=== PATIENT | male | born 1980 | race Caucasian/White ===

== ENCOUNTER 2018-09-01 19:10 | Inpatient (IN) ==
--- NOTE | 2018-09-01 19:19 | Emergency Department Note ---
Disposition Clinical Impression: Dyspnea, Urinary tract infection, History of aspiration pneumonia Disposition: Admitted As Inpatient Condition: Good Referrals: Queenie Woodward MD [Primary Care Provider] - General Adult HPI - General Stated complaint: breathing problem Time Seen by Provider: 09/01/18 19:10 Source: EMS Mode of arrival: EMS Limitations: physical limitation Nursing Notes Reviewed: Yes Vital Signs Reviewed: Yes - History of Present Illness HPI Narrative: Patient was sent here if increasing work of breathing. The [facility] care facility thinks that he may have aspirated. There was some lab work earlier and a chest x-ray and started him on some antibiotics but ultimately decided to send him here to the emergency department for evaluation. He reportedly had a negative flu test yesterday. The patient is nonverbal Onset (ago): day(s) (A couple of days) Location: chest Consistency: constant Improves with: nothing Worsens with: nothing - Related Data Home Medications Medication Instructions Recorded Confirmed Gabapentin [Neurontin] 800 mg GTUBE TID 03/27/17 09/01/18 Multivit-Min/FA/Lycopen/Lutein [A 1 tab GTUBE DAILY 03/27/17 09/01/18 Thru Z Select Multivit Tab] Polyethylene Glycol 3350 [MiraLAX] 17 gm GTUBE DAILY 03/27/17 09/01/18 Simethicone 80 mg GTUBE TID 03/27/17 09/01/18 Acetaminophen [Children's 640 mg GTUBE Q4HR PRN 09/14/17 09/01/18 Pain-Fever] GuaiFENesin/Dextromethorphan 5 ml GTUBE Q4HR PRN 09/14/17 09/01/18 [Robitussin/Dm] Hydrocortisone 1% CREAM [Cortaid] 1 appl TP DAILY PRN 09/14/17 09/01/18 Metoclopramide [Reglan] 5 mg GTUBE Q6HR 09/14/17 09/01/18 Omeprazole [PriLOSEC] 20 mg GTUBE DAILY 09/14/17 09/01/18 Amoxicillin/Clavulanate [Augmentin] 875 mg PO BIDWM 09/01/18 09/01/18 GuaiFENesin ER [Mucinex] 400 mg PO TID 09/01/18 09/01/18 Ipratropium/Albuterol Neb [Duoneb] 3 ml IH Q6HR 09/01/18 09/01/18 Oseltamivir [Tamiflu] 75 mg PO BID 09/01/18 09/01/18 levETIRAcetam [Keppra Oral Soln] 1,000 mg GTUBE BID 09/01/18 09/01/18 Allergies Allergy/AdvReac Type Severity Reaction Status Date / Time levofloxacin [From Levaquin] Allergy See Verified 10/04/17 06:40 Comments meperidine [From Demerol] Allergy See Verified 10/04/17 06:40 Comments ondansetron Allergy See Verified 10/04/17 06:40 [From Zofran (as Comments hydrochloride)] Limitations: ROS unobtainable due to patients medical condition Past Medical History - Past Medical History Attestation: Yes The following information was validated with the patient. Source: old records reviewed, nursing notes reviewed Medical history: Reports: GERD, seizures Surgical history: Reports: colostomy, other Psychiatric history: Reports: no psych history - Social History Smoking Status: Never smoker Smokeless Tobacco Status: No Alcohol use: Reports: none Drug use: Reports: none Physical Exam - General Limitations: physical limitation General appearance: in no apparent distress - Head Head exam: atraumatic, normocephalic, normal inspection - Eye Eye exam: Present: normal appearance (nothing acutely different than normal), PERRL, EOMI - ENT ENT exam: normal oropharynx - Neck Neck exam: Present: normal inspection - Chest Chest inspection: Present: normal inspection, symmetric chest wall rise - Respiratory Respiratory exam: Present: wheezes (few scattered wheezes). Absent: respiratory distress - Cardiovascular Cardiovascular exam: Present: regular rate, normal rhythm - Abdominal Exam Abdominal exam: Present: soft, normal bowel sounds - Extremities Exam Extremities exam: Present: other (nothing acutely different than normal) Course Vital Signs Temperature 100.5 F H 09/01/18 19:14 Pulse Rate 140 09/01/18 19:14 Respiratory Rate 20 09/01/18 19:14 Blood Pressure 118/83 09/01/18 19:14 O2 Sat by Pulse Oximetry 95 09/01/18 19:14 Temperature 100.5 F H 09/01/18 19:14 Pulse Rate 140 09/01/18 19:14 Respiratory Rate 20 09/01/18 19:14 Blood Pressure 118/83 09/01/18 19:14 O2 Sat by Pulse Oximetry 95 09/01/18 19:14 Oxygen Delivery Oxygen Delivery Non Rebreather Mask Medical Decision Making - MDM Narrative Medical decision making narrative: Review the patient's medication list. I discussed the case with Dr. Bejarano who is graciously agreed to admit the patient to the hospital - Lab Data Lab results reviewed: Yes I reviewed the patient's lab results. Result diagrams: 09/01/18 19:45 09/01/18 19:45 Lab Results 09/01/18 09/01/18 09/01/18 Range/Units 19:45 19:45 19:45 WBC 16.8 H (4.3-11.1) K/mcL RBC 5.32 (4.19-5.50) M/mcL Hgb 15.3 (12.9-16.9) g/dL Hct 46.0 (37.5-50.1) % MCV 86.5 (83.0-100.0) fL MCH 28.8 (28.0-33.3) pg MCHC 33.3 (31.6-35.5) g/dL RDW 13.9 (11.5-14.5) % Plt Count 200 (140-400) K/mcL MPV 11.7 (9.4-12.4) fL Immature Gran % 0.5 (0-4) % Seg Neutrophils % 92.9 % Lymphocytes % 2.4 % Monocytes % 3.7 % Eosinophils % 0.1 % Basophils % 0.4 % Neutrophils # 15.6 H (1.6-8.9) K/mcL Lymphocytes # 0.4 L (0.6-4.6) K/mcL Monocytes # 0.6 (0.0-1.3) K/mcL Eosinophils # 0.0 (0.0-0.6) K/mcL Basophils # 0.1 (0.0-0.2) K/mcL Sodium 133 L (136-145) mEq/L Potassium 3.5 (3.5-5.1) mEq/L Chloride 101 (98-107) mEq/L Carbon Dioxide 24 (23-29) mEq/L BUN 10 (6-20) mg/dL Creatinine 0.61 L (0.70-1.30) mg/dL Est GFR ( Amer) > 60 (> 60) Est GFR (Non-Af Amer) > 60 (> 60) BUN/Creatinine Ratio 16 (6-26) Glucose 111 H (70-105) mg/dL Calculated Osmolality 276 L (280-300) Lactic Acid 1.4 (0.5-2.2) mmol/L Calcium 9.3 (8.6-10.3) mg/dL Total Bilirubin 0.9 (0.3-1.0) mg/dL AST 26 (13-39) Units/L ALT 37 (7-52) Units/L Alkaline Phosphatase 94 (34-104) Units/L Troponin I < 0.03 (< 0.04) ng/mL Serum Total Protein 7.4 (6.4-8.9) g/dL Albumin 4.1 (3.5-5.7) g/dL Globulin 3.3 (2.4-3.5) g/dL Albumin/Globulin Ratio 1.2 (1.1-2.2) Urine Color (Yellow) Urine Clarity (Clear) Urine pH (5.0-8.0) pH Units Ur Specific [place] (1.010-1.025) Urine Protein (Neg-Trace) mg/dL Urine Glucose (UA) (Normal) mg/dL Urine Ketones (Negative) mg/dL Urine Blood (Negative) Urine Nitrite (Negative) Urine Bilirubin (Negative) Urine Urobilinogen (Normal) mg/dL Ur Leukocyte Esterase (Negative) Urine Microscopic RBC (0-3) per hpf Urine Microscopic WBC (0-3) per hpf Ur Squamous Epith Cells (None-Few) per lpf Ur Transition Epith Cell (None-Few) per hpf Urine Bacteria (None-Few) per hpf Ur Culture Indicated? (NO) 09/01/18 Range/Units 19:55 WBC (4.3-11.1) K/mcL RBC (4.19-5.50) M/mcL Hgb (12.9-16.9) g/dL Hct (37.5-50.1) % MCV (83.0-100.0) fL MCH (28.0-33.3) pg MCHC (31.6-35.5) g/dL RDW (11.5-14.5) % Plt Count (140-400) K/mcL MPV (9.4-12.4) fL Immature Gran % (0-4) % Seg Neutrophils % % Lymphocytes % % Monocytes % % Eosinophils % % Basophils % % Neutrophils # (1.6-8.9) K/mcL Lymphocytes # (0.6-4.6) K/mcL Monocytes # (0.0-1.3) K/mcL Eosinophils # (0.0-0.6) K/mcL Basophils # (0.0-0.2) K/mcL Sodium (136-145) mEq/L Potassium (3.5-5.1) mEq/L Chloride (98-107) mEq/L Carbon Dioxide (23-29) mEq/L BUN (6-20) mg/dL Creatinine (0.70-1.30) mg/dL Est GFR ( Amer) (> 60) Est GFR (Non-Af Amer) (> 60) BUN/Creatinine Ratio (6-26) Glucose (70-105) mg/dL Calculated Osmolality (280-300) Lactic Acid (0.5-2.2) mmol/L Calcium (8.6-10.3) mg/dL Total Bilirubin (0.3-1.0) mg/dL AST (13-39) Units/L ALT (7-52) Units/L Alkaline Phosphatase (34-104) Units/L Troponin I (< 0.04) ng/mL Serum Total Protein (6.4-8.9) g/dL Albumin (3.5-5.7) g/dL Globulin (2.4-3.5) g/dL Albumin/Globulin Ratio (1.1-2.2) Urine Color Yellow (Yellow) Urine Clarity Clear (Clear) Urine pH 7.0 (5.0-8.0) pH Units Ur Specific [place] 1.020 (1.010-1.025) Urine Protein >=300 H (Neg-Trace) mg/dL Urine Glucose (UA) Normal (Normal) mg/dL Urine Ketones Negative (Negative) mg/dL Urine Blood Trace-lysed H (Negative) Urine Nitrite Negative (Negative) Urine Bilirubin Small H (Negative) Urine Urobilinogen Normal (Normal) mg/dL Ur Leukocyte Esterase Negative (Negative) Urine Microscopic RBC 0-3 (0-3) per hpf Urine Microscopic WBC 3-5 H (0-3) per hpf Ur Squamous Epith Cells None Seen (None-Few) per lpf Ur Transition Epith Cell Few (None-Few) per hpf Urine Bacteria Moderate H (None-Few) per hpf Ur Culture Indicated? YES A (NO) - Radiology Data Radiology results reviewed: Yes I reviewed the patient's radiology results. - EKG Data EKG #1 EKG attestation: Yes I reviewed and interpreted this EKG. EKG results narrative: EKG shows sinus tachycardia without acute ST or T-wave changes. Overall poor R- wave progression. The rate is 137 bpm intervals 119 ms frustration 73 ms QTQTC intervals 293 and 4 and 20 ms respectively R axis of 226 degrees
[2018-09-01] MEDS ORDERED: 0.9 % Sodium Chloride 1,000 ML IVC ONE (19:27)
[2018-09-01 20:13] LABS: Basophils # 0.1 K/mcL (0.0-0.2); Basophils % 0.4 %; Eosinophils % 0.1 %; Hemoglobin 15.3 g/dL (12.9-16.9); Immature Granulocytes % 0.5 % (0-4); Lymphocytes # 0.4 K/mcL (0.6-4.6); Lymphocytes % 2.4 %; Mean Corpuscular HGB Conc 33.3 g/dL (31.6-35.5); Mean Corpuscular Hemoglobin 28.8 pg (28.0-33.3); Mean Corpuscular Volume 86.5 fL (83.0-100.0); Mean Platelet Volume 11.7 fL (9.4-12.4); Monocytes # 0.6 K/mcL (0.0-1.3); Monocytes % 3.7 %; Neutrophils # 15.6 K/mcL (1.6-8.9); Platelet Count 200 K/mcL (140-400); Red Blood Count 5.32 M/mcL (4.19-5.50); Red Cell Distribution Width 13.9 % (11.5-14.5); Segmented Neutrophils % 92.9 %
[2018-09-01 20:15] LABS: Bilirubin,Urine Small (Negative); Blood,Urine Trace-lysed (Negative); Clarity,Urine Clear (Clear); Color,Urine Yellow (Yellow); Glucose,Urine (UA) Normal (Normal); Ketones,Urine Negative (Negative); Leukocyte Esterase,Urine Negative (Negative); Nitrite,Urine Negative (Negative); Protein,Urine >=300 mg/dL (Neg-Trace); Urobilinogen,Urine Normal (Normal)
[2018-09-01 20:22] LABS: Bacteria,Urine Moderate per hpf (None-Few); RBC,Urine 0-3 per hpf (0-3); Squamous Epithelial Cell,Urine None Seen per lpf (None-Few); Transitional Epi Cells,Urine Few per hpf (None-Few)
[2018-09-01 20:31] LABS: BUN/Creatinine Ratio 16 (6-26); Blood Urea Nitrogen 10 mg/dL (6-20); Carbon Dioxide 24 mEq/L (23-29); Chloride 101 mEq/L (98-107); Potassium 3.5 mEq/L (3.5-5.1); Sodium 133 mEq/L (136-145); Troponin I < 0.03 ng/mL (< 0.04)
[2018-09-01 20:32] LABS: Alanine Aminotransferase 37 Units/L (7-52); Albumin 4.1 g/dL (3.5-5.7); Albumin/Globulin Ratio 1.2 (1.1-2.2); Alkaline Phosphatase 94 Units/L (34-104); Aspartate Amino Transferase 26 Units/L (13-39); Bilirubin,Total 0.9 mg/dL (0.3-1.0); Calcium 9.3 mg/dL (8.6-10.3); Globulin 3.3 g/dL (2.4-3.5); Glucose 111 mg/dL (70-105); Osmolality,Calculated 276 (280-300); Total Protein 7.4 g/dL (6.4-8.9); eGFR For Non-African Americans > 60 (> 60)
[2018-09-01] MEDS ORDERED: cefTRIAXone 1,000 MG in 0.9 % Sodium Chloride Mini Bag 100 ML IVPB ONE (22:26)
[2018-09-02] MEDS ORDERED: Naloxone 0.4 MG/ML INJ IVP PRN (00:35)
[2018-09-02] MEDS: 0.9 % Sodium Chloride 1,000 ML IVC SCH ×3 (00:54→14:42)
[2018-09-02] MEDS: Metoclopramide 10 MG/10 ML UD.LIQ GTUBE SCH ×5 (01:00→23:59)
[2018-09-02] MEDS: Ipratropium/Albuterol Neb 3 ML IH SCH ×4 (02:38→20:00)
[2018-09-02 06:48] LABS: Basophils # 0.1 K/mcL (0.0-0.2); Basophils % 0.5 %; Hematocrit 42.7 % (37.5-50.1); Hemoglobin 13.9 g/dL (12.9-16.9); Immature Granulocytes % 0.5 % (0-4); Lymphocytes # 0.5 K/mcL (0.6-4.6); Lymphocytes % 5.1 %; Mean Corpuscular HGB Conc 32.6 g/dL (31.6-35.5); Mean Corpuscular Hemoglobin 28.6 pg (28.0-33.3); Mean Corpuscular Volume 87.9 fL (83.0-100.0); Mean Platelet Volume 11.4 fL (9.4-12.4); Monocytes # 0.9 K/mcL (0.0-1.3); Monocytes % 8.6 %; Neutrophils # 8.8 K/mcL (1.6-8.9); Platelet Count 167 K/mcL (140-400); Red Blood Count 4.86 M/mcL (4.19-5.50); Red Cell Distribution Width 13.9 % (11.5-14.5); Segmented Neutrophils % 85.3 %
[2018-09-02 07:05] LABS: BUN/Creatinine Ratio 14 (6-26); Blood Urea Nitrogen 9 mg/dL (6-20); Calcium 8.6 mg/dL (8.6-10.3); Carbon Dioxide 22 mEq/L (23-29); Chloride 106 mEq/L (98-107); Glucose 117 mg/dL (70-105); Osmolality,Calculated 282 (280-300); Potassium 3.7 mEq/L (3.5-5.1); Sodium 136 mEq/L (136-145); eGFR For Non-African Americans > 60 (> 60)
--- NOTE | 2018-09-02 10:33 | Internal Med History&Physical ---
Addendum entered and electronically signed by Alfonso Bejarano MD 09/03/18 11:28: It should also have been noted that the patient has a left lower quadrant colostomy which is functioning and intact without gross herniation. Addendum entered and electronically signed by Alfonso Bejarano MD 09/02/18 12:54: I spoke with patient's mother, who is also his guardian, Xochitl Kwong. I described the patient's clinical situation, has worsening oxygenation which is improved with CPAP, test results, etc. I told her that I did not feel he was worsening, currently but that he was febrile and we did note a source of this infection. She feels that it is important that we know that he had a couple of gallstones on admission, earlier in the year. I informed her that I do not think that he seems to have cholecystitis but we would take this information into consideration. Interestingly, his white blood count has normalized. Per nursing, he was placed on Tamiflu in the emergency room but he was negative for influenza at his facility. She confirmed that he is to be a DO NOT RESUSCITATE, do not arrest, DO NOT INTUBATE. She prefers to be contacted by her cell phone, or at her 's cell phone . Addendum entered and electronically signed by Alfonso Bejarano MD 09/02/18 11:58: I have personally performed a face to face evaluation on this patient. I have reviewed and agree with the care plan. History and Exam by me shows: Patient is a 38-year-old man with cerebral palsy. He is apparently minimally responsive at his baseline and is nonverbal. He is treated with medications by G-tube and tube feedings at night. He presented to the emergency room with fever, tachypnea, hypoxia, and respiratory exam was felt to represent aspiration. He is also known to have recurrent UTIs. White 1 count was elevated but this normalized overnight. Patient is minimally responsive. He has chronic immobility with deformity of hands and feet, chronic edema. Review of systems, past history is from computer because of patient's inability to communicate. Examination: (Except as mentioned above): General: Patient appears uncomfortable. He is given a with increased expiratory phase. He obviously does not like his rebreather mask. Head: Atraumatic and normocephalic. Eyes: Extraocular muscles are intact, pupils equal round and reactive to light and I am unable to determine accommodation. Sclerae anicteric. Ears: External ears are normal to inspection and hearing is impossible to assess. Nose: Patent without lesion noted. Mouth: No intraoral lesions seen. Dentition is unremarkable. It is present. Oral mucosa is moist Neck: Supple with trachea midline. There is no thyromegaly or adenopathy and carotids are 2+ without bruit heard. Respiratory: No use of accessory muscles. Lungs have upper airway sounds and no rales with increased expiratory phase, mildly tachypneic as above. Normal airflow. Cardiovascular: Regular rate and rhythm without murmur appreciated. Abdomen: Bowel sounds are normal. No hepatosplenomegaly masses or tenderness. Obese and therefore difficult to palpate deeply. Extremities: No cyanosis clubbing or pitting edema. He has atrophy and edema of immobility, as noted above. Neurological: A and O 3. Cranial nerves II through XII are intact, as can be assessed. No focal deficits and no abnormal movements or postures. Skin: Warm and non-diaphoretic with no lesions noted. Breasts, pelvic and rectal: Not examined. He apparently has a seizure disorder as indicated by history and his medications. Her paperwork accompanying the patient and he is a DNRCCA, DO NOT INTUBATE. We will empirically treat him with antibiotics, await cultures, because of his edema and prolonged inspiratory phase we checked a BNP but this was negative for signs of CHF. Because his oxygenation was worsening, his chest x-ray was repeated and failed to show any new infiltrates or CHF. I will attempt to reach patient's mother who is apparently next of kin and determine whether history or care wishes from her standpoint. Original Note: Date of Encounter: 09/02/18 Time of Encounter: 10:31 Assessment and Plan (1) Dyspnea Current visit: Yes Status: Acute Patient was admitted to the emergency department with slight dyspnea and to rule out possible aspiration. Patient continues to have slight work of breath noted. Patient remains on nonrebreather to maintain oxygen greater than 90%. We will place patient on CPAP to maintain airway clearance and will evaluate patient's progress while on CPAP. We will titrate patient's oxygen to maintain saturation greater than 88%. Initial chest x-ray shows no infectious process but does show poor ventilation. We will continue on current Rocephin. Patient continues on Augmentin for possible UTI. Admission WBC was at 16.8. We will continue to monitor and continue on current bronchodilators. Qualifiers: Dyspnea type: unspecified Qualified Code(s): R06.00 - Dyspnea, unspecified (2) Cerebral palsy Current visit: Yes Status: Chronic No acute issues. Patient remains comfortable and does not follow any commands. Patient remains total care. We will continue with comfort care measures. Qualifiers: Cerebral palsy type: unspecified type Qualified Code(s): G80.9 - Cerebral palsy, unspecified (3) Seizure disorder Current visit: Yes Status: Chronic No acute issues. No neurological acute deficits noted on exam. No seizure activity noted. We will continue on current AEDs. Internal Medicine - H&P: HPI Chief complaint: dyspnea Admitted From: Home Plans for Post Hospital Care: Home History of present illness: Mr. Villafana is a 38 year old male, who presented to the emergency department from an extended care facility with increased work of breath and possible aspiration. 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 Patient remains nonverbal. Per medical records from nursing facility patient has recently been treated for pneumonia and UTI with oral antibiotics. Nursing facility also documented that A nasal swab was obtained which shows negative for flu virus. Patient was treated with nebulizer treatments and started on IV antibiotics. Patient currently has had difficulty maintaining saturation greater than 90% and at time of exam he was on a nonrebreather mask. Patient noted to have slight increased work of breath, which appears to be mostly upper airway. His lungs continue to show some congestion to the upper bronchials and diminished bases. Chest x-ray shows no infectious process. Admission labs showed no acute issues except for WBC of 16.8. Repeat labs show WBC at 10.3. Past Med Surg Social Fam HX - Past Medical History Medical history: GERD, seizures Additional medical history: quadropalegia, cerebral palsey Psychiatric history: no psych history - Past Surgical History Surgical History: colostomy, other Additional surgical history: peg tube - Social History Smoking Status: Never smoker Smokeless Tobacco Status: No Alcohol use: none Drug use: none - Family History Mother History Unknown: Yes Family Member Ethnicity: Non- Living Status: Still Living Internal Medicine - H&P: Meds Gabapentin [Neurontin] 800 mg GTUBE TID 03/27/17 [History] Multivit-Min/FA/Lycopen/Lutein [A Thru Z Select Multivit Tab] 1 tab GTUBE DAILY 03/27/17 [History] Polyethylene Glycol 3350 [MiraLAX] 17 gm GTUBE DAILY 03/27/17 [History] Simethicone 80 mg GTUBE TID 03/27/17 [History] Acetaminophen [Children's Pain-Fever] 640 mg GTUBE Q4HR PRN 09/14/17 [History] GuaiFENesin/Dextromethorphan [Robitussin/Dm] 5 ml GTUBE Q4HR PRN 09/14/17 [History] Hydrocortisone 1% CREAM [Cortaid] 1 appl TP DAILY PRN 09/14/17 [History] Metoclopramide [Reglan] 5 mg GTUBE Q6HR 09/14/17 [History] Omeprazole [PriLOSEC] 20 mg GTUBE DAILY 09/14/17 [History] Amoxicillin/Clavulanate [Augmentin] 875 mg PO BIDWM 09/01/18 [History] GuaiFENesin ER [Mucinex] 400 mg PO TID 09/01/18 [History] Ipratropium/Albuterol Neb [Duoneb] 3 ml IH Q6HR 09/01/18 [History] Oseltamivir [Tamiflu] 75 mg PO BID 09/01/18 [History] levETIRAcetam [Keppra Oral Soln] 1,000 mg GTUBE BID 09/01/18 [History] Allergy/AdvReac Type Severity Reaction Status Date / Time levofloxacin [From Levaquin] Allergy See Verified 10/04/17 06:40 Comments meperidine [From Demerol] Allergy See Verified 10/04/17 06:40 Comments ondansetron Allergy See Verified 10/04/17 06:40 [From Zofran (as Comments hydrochloride)] ROS unobtainable: due to mental status All Systems PM: A 10-system review of systems was performed and is negative for pertinent findings except as documented above in the HPI. - Constitutional Constitutional: as per HPI - EENT Eyes: as per HPI Ears: as per HPI Nose, mouth and throat: as per HPI - Breasts Breasts: as per HPI - Cardiovascular Cardiovascular ROS IM: as per HPI - Respiratory Respiratory: as per HPI - Gastrointestinal Gastrointestinal: as per HPI - Genitourinary Genitourinary ROS male: as per HPI - Musculoskeletal Musculoskeletal ROS IM: as per HPI - Integumentary Integumentary IM: as per HPI - Neurological Neurological ROS: as per HPI - Psychiatric Psychiatric: as per HPI - Endocrine Endocrine IM: as per HPI - Constitutional Vitals: Temp Pulse Resp BP Pulse Ox 100.5 F H 117 20 101/66 93 09/02/18 07:33 09/02/18 07:33 09/02/18 07:33 09/02/18 07:33 09/02/18 07:33 Exam: Patient is nonverbal and does not interact with tracking of eyes or as response to verbal stimulation. History of MRDD - Head Head exam: Present: atraumatic, normocephalic - Eye Eye exam: Present: PERRL, conjuntiva pink, sclera anicteric Pupils: Present: PERRL - Neck Neck exam general surgery: Present: supple, trachea midline. Absent: lymphadenopathy - Respiratory Respiratory exam: Present: decreased breath sounds, CTAB, rhonchi. Absent: accessory muscle use, rales, wheezes Additional comments: Lungs are diminished throughout basis. Upper airways have rhonchi but can be heard which tends to be higher in his airway with questionable difficulty and airway clearance. No productive cough noted. Respiratory effort shows slight increased work of breath but remains at 22/m - Cardiovascular Cardiovascular exam: Present: RRR, +S1, +S2. Absent: diastolic murmur, gallop, rubs, systolic murmur - GI/Abdominal GI/Abdominal exam: Present: normal bowel sounds, soft, no peritoneal signs. Absent: distended, tenderness - Extremities Exam Extremities exam: Present: pedal edema, warm, radial pulses palpable and symmetrical. Absent: calf tenderness, cyanotic Additional comments: Slight +1 edema to lower legs - Neurological Exam Neurological exam: Present: no focal deficits. Absent: pronater drift, facial droop, speech deficit Additional comments: Exam limited due to patient's on interaction and being nonverbal secondary to his MRDD. Patient does not sluggish withdrawal to all extremities. No tracking with eyes. Does not follow any commands. No focal neurological deficits noted - Skin Skin exam: Present: dry, intact Internal Med - H&P Results - Labs CBC & Chem 7: 09/02/18 06:43 09/02/18 06:43 Labs: Short CBC 09/01/18 09/02/18 Range/Units 19:45 06:43 WBC 16.8 H 10.3 (4.3-11.1) K/mcL Hgb 15.3 13.9 (12.9-16.9) g/dL Hct 46.0 42.7 (37.5-50.1) % Plt Count 200 167 (140-400) K/mcL Neutrophils # 15.6 H 8.8 (1.6-8.9) K/mcL BMP 09/01/18 09/02/18 19:45 06:43 Sodium 133 L 136 Potassium 3.5 3.7 Chloride 101 106 Carbon Dioxide 24 22 L BUN 10 9 Creatinine 0.61 L 0.63 L Glucose 111 H 117 H Calcium 9.3 8.6 Cardiac Enzymes 09/01/18 Range/Units 19:45 Troponin I < 0.03 (< 0.04) ng/mL Liver Function 09/01/18 Range/Units 19:45 Total Bilirubin 0.9 (0.3-1.0) mg/dL AST 26 (13-39) Units/L ALT 37 (7-52) Units/L Alkaline Phosphatase 94 (34-104) Units/L Albumin 4.1 (3.5-5.7) g/dL Urine 09/01/18 Range/Units 19:55 Urine Color Yellow (Yellow) Urine Clarity Clear (Clear) Urine pH 7.0 (5.0-8.0) pH Units Ur Specific [place] 1.020 (1.010-1.025) Urine Protein >=300 H (Neg-Trace) mg/dL Urine Glucose (UA) Normal (Normal) mg/dL - Impressions ITS Impressions Chest X-Ray 09/01/18 19:14 IMPRESSION: Low lung volumes without acute cardiopulmonary disease. D/ / Carlos Alberto Flowers / Carlos Alberto Flowers Interpreting Provider: Carlos Alberto Flowers Chest X-Ray 09/02/18 09:04 IMPRESSION: No acute findings. D/ / Carlos Villalta MD / Carlos Villalta MD Interpreting Provider: Carlos Villalta MD
[2018-09-02] MEDS: GuaiFENesin Liq 200 MG/10 ML UDC GTUBE SCH ×3 (10:48→21:53)
[2018-09-02] MEDS: levETIRAcetam 500 MG/5 ML UDC GTUBE SCH ×2 (10:49→21:52)
[2018-09-02] MEDS: Multivitamin Liquid 15 ML UDC GTUBE SCH (10:51)
[2018-09-02] MEDS: Simethicone 40 MG/0.6 ML MLS GTUBE SCH ×3 (10:52→21:53)
[2018-09-02] MEDS: Gabapentin 400 MG CAPSULE GTUBE SCH ×3 (10:52→21:52)
--- NOTE | 2018-09-02 16:55 | Electrocardiograph Report ---
[place] [id number] Test Date: 2018-09-01 Pat Name: Aston Villafana Department: EDG2 Room: 118 Gender: M [employer]ing [employer] Tender: : 1980 Requested By: Travis Call Order Number: [id number] Reading MD: Cristina Guillen Measurements Intervals [place] Rate: 137 P: 28 DE: 119 QRS: 226 QRSD: 73 T: 23 QT: 283 QTc: 428 Interpretive Statements Sinus tachycardia Abnormal R-wave progression, late transition Inferior infarct, old Electronically Signed On 09-02-2018 16:53:47 EDT by Cristina Guillen
[2018-09-02] MEDS: Amoxicillin/Clavulanate 200 MG/5 ML MLS PO SCH (17:59)
[2018-09-02] MEDS: *HR* Heparin 5,000 UNIT/ML VIAL SQ SCH (18:01)
[2018-09-02] MEDS: cefTRIAXone 1,000 MG in 0.9 % Sodium Chloride Mini Bag 100 ML IVPB SCH (21:50)
[2018-09-02] MEDS ORDERED: cefTRIAXone 1,000 MG in 0.9 % Sodium Chloride Mini Bag 100 ML IVPB SCH (22:00)
[2018-09-03] MEDS: 0.9 % Sodium Chloride 1,000 ML IVC SCH (03:33)
[2018-09-03] MEDS: Ipratropium/Albuterol Neb 3 ML IH SCH ×4 (03:33→21:36)
[2018-09-03] MEDS: Metoclopramide 10 MG/10 ML UD.LIQ GTUBE SCH ×4 (05:45→23:51)
[2018-09-03] MEDS: *HR* Heparin 5,000 UNIT/ML VIAL SQ SCH ×2 (05:46→17:23)
[2018-09-03] MEDS: Amoxicillin/Clavulanate 200 MG/5 ML MLS PO SCH ×2 (08:00→16:55)
[2018-09-03] MEDS: Gabapentin 400 MG CAPSULE GTUBE SCH ×3 (08:37→20:13)
[2018-09-03] MEDS: Multivitamin Liquid 15 ML UDC GTUBE SCH (08:37)
[2018-09-03] MEDS: levETIRAcetam 500 MG/5 ML UDC GTUBE SCH ×2 (08:37→20:12)
[2018-09-03] MEDS: GuaiFENesin Liq 200 MG/10 ML UDC GTUBE SCH ×3 (09:57→21:29)
[2018-09-03] MEDS: Simethicone 40 MG/0.6 ML MLS GTUBE SCH ×3 (09:57→21:30)
--- NOTE | 2018-09-03 10:22 | Internal Med Progress Note ---
Addendum entered and electronically signed by Alfonso Bejarano MD 09/03/18 11:29: I have personally performed a face to face evaluation on this patient. I have r eviewed and agree with the care plan. History and Exam by me shows: Patient looks more stable than yesterday. His respiratory rate has decreased. He is still having prolonged expiratory phase but this may be baseline. His tolerance of CPAP mask has been good. We will try to wean this today. His oxygenation is better. He still coughs frequently when medications or tube feedings are infused. He illustrates decorticated posturing frequently. I assuming this is baseline. Discussed care with other providers and/or nursing. Patient has no complaint of chest discomfort, dyspnea, orthopnea, palpitations, nausea or vomiting, constipation or diarrhea, other changes in bowel habits, di fficulty with urination, rash or itching, or other new complaints, except as mentioned above. Review of systems is otherwise negative. Examination: (Except as mentioned above): General: In no apparent distress. Alert and oriented 3. Nondiaphoretic. Head: Atraumatic and normocephalic. Respiratory: No use of accessory muscles. Lungs are clear throughout. Normal airflow. Cardiovascular: Regular rate and rhythm without murmur appreciated. Abdomen: Bowel sounds are normal. No hepatosplenomegaly mass or tenderness appreciated. Obese and therefore difficult to palpate deeply. There is no right upper quadrant tenderness. Left lower quadrant colostomy is intact with adequate function. Extremities: No cyanosis clubbing or edema. Skin: Warm and non-diaphoretic with no new lesions noted. Nursing notes that her urinary output was diminished last night. For this reason, his IV was increased. We will follow fluids, urine output, etc. Original Note: Date of Encounter: 09/03/18 Time of Encounter: 10:19 - Assessment and plan (1) Dyspnea Current Visit: Yes Status: Acute Assessment and plan: Patient's oxygenation has improved after being placed on CPAP overnight. Patient currently shows a less work of breath while on CPAP and been able to maintain airway clearance. Lungs remain clear to up her moreno with diminished bases. He does at times shows some condition to the back of his throat. Respiratory she has not NT suction. Patient has remained afebrile. We will evaluate patient for possible trial off CPAP today. Will continue with supportive care. Qualifiers: Dyspnea type: unspecified Qualified Code(s): R06.00 - Dyspnea, unspecified (2) Cerebral palsy Current Visit: Yes Status: Chronic Assessment and plan: No acute neurological changes noted. Patient continues to require total care. Patient shows minimal spontaneous movement. Nonverbal. Qualifiers: Cerebral palsy type: unspecified type Qualified Code(s): G80.9 - Cerebral palsy, unspecified (3) Seizure disorder Current Visit: Yes Status: Chronic Assessment and plan: No acute issues. No seizure activity noted. Neurological exam remains unchanged. We will continue with current plan of care - Time Spent With Patient less than 15 minutes - Subjective Interval history: Patient remains nonverbal as his baseline. Patient does appear more relaxed while on CPAP. Nurse reports no issues tonight and the patient has remained a febrile and has not required any NT suctioning. - Constitutional Vitals: Temp Pulse Resp BP Pulse Ox 98.4 F 72 19 108/76 98 09/03/18 08:15 09/03/18 08:15 09/03/18 08:15 09/03/18 08:15 09/03/18 09:00 Exam: Patient currently is nonverbal and does not respond any verbal stimuli. Does not follow any commands. History of CP - Head Head exam: Present: atraumatic, normocephalic - Eye Eye exam: Present: PERRL, conjuntiva pink, sclera anicteric Pupils: Present: PERRL - Neck Neck exam general surgery: Present: supple, trachea midline. Absent: lymphadenopathy - Respiratory Respiratory exam: Present: decreased breath sounds, CTAB. Absent: accessory muscle use, rales, rhonchi, wheezes Additional comments: Patient remains on CPAP with a pressure of 10 and 35% oxygen was bled into the system. Saturations have remained greater than 90%. Lungs are clear throughout upper moreno and diminished bases. Patient continues to show some congestion in the back of his throat or upper bronchials - Cardiovascular Cardiovascular exam: Present: RRR, +S1, +S2. Absent: diastolic murmur, gallop, rubs, systolic murmur - GI/Abdominal GI/Abdominal exam: Present: normal bowel sounds, soft, no peritoneal signs. Absent: distended, tenderness Additional comments: Patient has a gastrostomy pain in place with tube feeding infusing. Noted slight redness around insertion site. - Extremities Exam Extremities exam: Present: pedal edema, warm, radial pulses palpable and symmetrical. Absent: calf tenderness, cyanotic Additional comments: Slight nonpitting edema noted to sacral area and pedal. Slight contractures noted to bilateral lower extremities - Neurological Exam Neurological exam: Present: speech deficit. Absent: pronater drift, facial droop Additional comments: Neurological exam limited due to patient's nonverbal and unable to participate. Patient currently does not respond to any verbal stimuli or follow any commands. Sluggish withdrawal to pain on extremities. Patient with history of CP. - Skin Skin exam: Present: dry, intact Internal Medicine: Result - Labs CBC & Chem 7: 09/02/18 06:43 09/02/18 06:43 Consult Discharge Plan - Plan Referrals: Queenie Woodward MD [Primary Care Provider] -
[2018-09-03] MEDS: cefTRIAXone 1,000 MG in 0.9 % Sodium Chloride Mini Bag 100 ML IVPB SCH (21:31)
[2018-09-04] MEDS: Ipratropium/Albuterol Neb 3 ML IH SCH ×4 (04:20→22:02)
[2018-09-04] MEDS: Metoclopramide 10 MG/10 ML UD.LIQ GTUBE SCH ×3 (05:51→16:22)
[2018-09-04] MEDS: *HR* Heparin 5,000 UNIT/ML VIAL SQ SCH ×2 (05:53→16:21)
[2018-09-04] MEDS: Gabapentin 400 MG CAPSULE GTUBE SCH ×3 (08:16→21:28)
[2018-09-04] MEDS: Multivitamin Liquid 15 ML UDC GTUBE SCH (08:17)
[2018-09-04] MEDS: levETIRAcetam 500 MG/5 ML UDC GTUBE SCH ×2 (08:17→21:28)
[2018-09-04] MEDS: Simethicone 40 MG/0.6 ML MLS GTUBE SCH ×4 (08:18→21:30)
[2018-09-04] MEDS: GuaiFENesin Liq 200 MG/10 ML UDC GTUBE SCH ×3 (08:19→21:28)
[2018-09-04] MEDS: Amoxicillin/Clavulanate 400 MG/5 ML UDC GTUBE SCH ×2 (08:22→16:25)
[2018-09-04 10:52] LABS: Basophils % 0.3 %; Hematocrit 38.9 % (37.5-50.1); Hemoglobin 12.7 g/dL (12.9-16.9); Immature Granulocytes % 0.3 % (0-4); Lymphocytes # 1.4 K/mcL (0.6-4.6); Lymphocytes % 22.6 %; Mean Corpuscular HGB Conc 32.6 g/dL (31.6-35.5); Mean Corpuscular Hemoglobin 28.7 pg (28.0-33.3); Mean Corpuscular Volume 87.8 fL (83.0-100.0); Mean Platelet Volume 11.4 fL (9.4-12.4); Monocytes # 0.5 K/mcL (0.0-1.3); Monocytes % 7.4 %; Neutrophils # 4.2 K/mcL (1.6-8.9); Platelet Count 155 K/mcL (140-400); Red Blood Count 4.43 M/mcL (4.19-5.50); Red Cell Distribution Width 14.1 % (11.5-14.5); Segmented Neutrophils % 69.4 %
--- NOTE | 2018-09-04 11:02 | Internal Med Progress Note ---
Addendum entered and electronically signed by Alfonso Bejarano MD 09/04/18 13:24: I have personally performed a face to face evaluation on this patient. I have r eviewed and agree with the care plan. History and Exam by me shows: Patient is more verbal when manipulated. He is not at all intelligible. When allowed to relax, he is reacting normally with no increase in expiratory phase. He may be returning to baseline. He still has low-grade temperature. Laboratory studies are unremarkable. We will follow for another day and consider swing bed or return to [facility]. Discussed care with other providers and/or nursing. Nursing question seizure activity. However, I think this is only posturing. Examination: (Except as mentioned above): General: In no apparent distress. Nonresponsive as before, more audible as above. Rarely postures. Head: Atraumatic and normocephalic. Respiratory: No use of accessory muscles. Lungs are clear throughout. Normal airflow. Cardiovascular: Regular rate and rhythm without murmur appreciated. Abdomen: Bowel sounds are normal. No hepatosplenomegaly mass or tenderness appreciated. Obese and therefore difficult to palpate deeply. Extremities: No cyanosis clubbing or change in edema. Skin: Warm and non-diaphoretic with no new lesions noted. We have not localized any signs of infection so assuming this is viral. However, we know that he was swabbed for influenza and this was negative. We will continue to follow for another day, as above. Original Note: Date of Encounter: 09/04/18 Time of Encounter: 11:00 - Assessment and plan (1) Dyspnea Current Visit: Yes Status: Acute Assessment and plan: Patient has been off CPAP since this afternoon and has maintained his oxygen saturation greater than 90% while on 35% oxygen mask. Respiratory effort appears relaxed at present although patient still has a slight snoring type respirations. Lungs are clear throughout upper moreno but noted slight expiratory wheeze which may also be secondary to his airway clearance. Nurse reports occasional productive cough and no sputum received Qualifiers: Dyspnea type: unspecified Qualified Code(s): R06.00 - Dyspnea, unspecified (2) Cerebral palsy Current Visit: Yes Status: Chronic Assessment and plan: Nurse reports patient with 2-3 seizures through the night which they describe as a momentarily decorticate type posturing. Patient noted to have decorticate type posturing with noxious stimuli to bilateral feet. Labs were sent to evaluate. Patient currently been no obvious seizure activity noted. Patient actually is more awake today than he has been since his admission. No acute neurological deficits noted on exam. Qualifiers: Cerebral palsy type: unspecified type Qualified Code(s): G80.9 - Cerebral palsy, unspecified (3) Seizure disorder Current Visit: Yes Status: Chronic Assessment and plan: Patient with reported seizure type activity on 3 different occasions by nursing overnight. Her symptoms describes seizures as a decorticate type posturing momentarily. Patient noted to have decorticate type posturing in response to noxious stimuli to bilateral feet. Patient is actually more awake today that he has been. Patient currently on Keppra. Will check his current labs and Keppra levels. - Time Spent With Patient less than 15 minutes - Subjective Interval history: Patient remains nonverbal as his baseline. Nursing reports patient has had what appears to be seizure-like activity on 2-3 occasions through the night and which patient has a decorticate type posturing. Nursing also reports patient has been off CPAP since yesterday afternoon and remains on a 35% oxygen mask and has maintained saturations greater than 90%. Patient continues to have a slight snoring type airway clearance but does appear relaxed. Patient was stimulated with noxious stimuli to the feet and was noted to have a decorticate type posturing in response. Patient is more awake today but remains nonverbal - Constitutional Vitals: Temp Pulse Resp BP Pulse Ox 98.2 F 109 16 114/70 97 09/04/18 08:00 09/04/18 08:00 09/04/18 08:00 09/04/18 08:00 09/04/18 08:00 Exam: Patient is a CP patient patient has a history of nonverbal, which makes his exam limited - Head Head exam: Present: atraumatic, normocephalic - Eye Eye exam: Present: PERRL, conjuntiva pink, sclera anicteric Pupils: Present: PERRL - Neck Neck exam general surgery: Present: supple, trachea midline. Absent: lymphadenopathy - Respiratory Respiratory exam: Present: CTAB. Absent: accessory muscle use, rales, rhonchi, wheezes Additional comments: Lungs are clear throughout upper moreno with diminished basilar moreno. Patient continues to have a slight expiratory wheeze was referred in his upper airways and may be secondary to airway clearance. Patient has had an occasional productive cough but no sputum has been received. Oxygen saturation has remained greater than 90% on 35% oxygen per mask - Cardiovascular Cardiovascular exam: Present: RRR, +S1, +S2. Absent: diastolic murmur, gallop, rubs, systolic murmur - GI/Abdominal GI/Abdominal exam: Present: normal bowel sounds, soft, no peritoneal signs. Absent: distended, tenderness - Extremities Exam Extremities exam: Present: pedal edema, warm, radial pulses palpable and s ymmetrical. Absent: calf tenderness, cyanotic Additional comments: Patient was slight nonpitting generalized edema mostly to his sacral area and feet. Patient is nonmobile and has slight contractures to lower extremities - Neurological Exam Neurological exam: Absent: pronater drift, facial droop, speech deficit Additional comments: Exam is limited due to non-participation from patient and plan nonverbal. Patient with history of severe CP. Eyes are open but no tracking. Patient was sluggish minimal recent withdrawal to upper extremities with a posturing-type movement. Patient was stimulated with noxious stimulate to his feet and had a decorticate type posturing in response. No active seizure activity noted during exam - Skin Skin exam: Present: dry, intact Internal Medicine: Result - Labs CBC & Chem 7: 09/04/18 10:44 09/02/18 06:43 Labs: Short CBC 09/04/18 Range/Units 10:44 WBC 6.1 (4.3-11.1) K/mcL Hgb 12.7 L (12.9-16.9) g/dL Hct 38.9 (37.5-50.1) % Plt Count 155 (140-400) K/mcL Neutrophils # 4.2 (1.6-8.9) K/mcL Consult Discharge Plan - Plan Referrals: Queenie Woodward MD [Primary Care Provider] -
[2018-09-04 11:44] LABS: Alanine Aminotransferase 33 Units/L (7-52); Albumin 3.3 g/dL (3.5-5.7); Albumin/Globulin Ratio 1.2 (1.1-2.2); Alkaline Phosphatase 99 Units/L (34-104); Aspartate Amino Transferase 33 Units/L (13-39); BUN/Creatinine Ratio 8 (6-26); Bilirubin,Total 0.3 mg/dL (0.3-1.0); Blood Urea Nitrogen 4 mg/dL (6-20); Calcium 8.7 mg/dL (8.6-10.3); Carbon Dioxide 27 mEq/L (23-29); Chloride 105 mEq/L (98-107); Globulin 2.7 g/dL (2.4-3.5); Glucose 122 mg/dL (70-105); Magnesium 1.5 mg/dL (1.6-2.6); Osmolality,Calculated 288 (280-300); Potassium 3.1 mEq/L (3.5-5.1); Sodium 140 mEq/L (136-145); eGFR For Non-African Americans > 60 (> 60)
[2018-09-04] MEDS: cefTRIAXone 1,000 MG in 0.9 % Sodium Chloride Mini Bag 100 ML IVPB SCH (21:30)
[2018-09-05] MEDS: Metoclopramide 10 MG/10 ML UD.LIQ GTUBE SCH ×2 (01:27→04:48)
[2018-09-05] MEDS: Simethicone 40 MG/0.6 ML MLS GTUBE SCH ×3 (04:48→16:31)
[2018-09-05] MEDS: *HR* Heparin 5,000 UNIT/ML VIAL SQ SCH (04:50)
[2018-09-05] MEDS: Ipratropium/Albuterol Neb 3 ML IH SCH ×3 (04:50→15:42)
[2018-09-05] MEDS ORDERED: Potassium Chloride Elixir 20 MEQ/15 ML UDC GTUBE ONE (09:44)
[2018-09-05] MEDS: GuaiFENesin Liq 200 MG/10 ML UDC GTUBE SCH ×2 (10:30→16:33)
[2018-09-05] MEDS: Gabapentin 400 MG CAPSULE GTUBE SCH ×2 (10:30→16:21)
--- NOTE | 2018-09-05 10:36 | Internal Med Progress Note ---
Date of Encounter: 09/05/18 Time of Encounter: 10:34 - Assessment and plan (1) Dyspnea Current Visit: Yes Status: Acute Assessment and plan: Patient has had CPAP weaned off approximately 48 hours ago and is maintained on a 35% oxygen mask. We will continue to wean oxygen with a goal of placing patient on nasal cannula. Respiratory effort appears relaxed. No signs of infectious process or aspiration has been noted during his stay here. Patient continues to have moderate amount of oral secretions requiring suctioning. We will continue with pulmonary toileting and continue to wean his oxygen to maintain a saturation greater than 90%. Qualifiers: Dyspnea type: unspecified Qualified Code(s): R06.00 - Dyspnea, unspecified (2) Cerebral palsy Current Visit: Yes Status: Chronic Assessment and plan: Patient appears more alert today but continues not to interact with staff. Patient has no further reported seizure-type activity although he continues to have decorticate type posturing during stimulus. Patient appears at his baseline Qualifiers: Cerebral palsy type: unspecified type Qualified Code(s): G80.9 - Cerebral palsy, unspecified (3) Seizure disorder Current Visit: Yes Status: Chronic Assessment and plan: No further reports of seizure activity per nursing. Patient continues with his cortical type posturing in response to stimulus. (4) PEG (percutaneous endoscopic gastrostomy) status Current Visit: No Status: Chronic Assessment and plan: Patient continues on tube feeding [id number], although nursing facility reports patient only received 12 hours of feeding per day. Abdomen appears slightly distended and nurse reports patient has been having moderate amount of flatus per colostomy. We will increase current Reglan to 10 mg. We will obtain KUB to evaluate. - Time Spent With Patient less than 15 minutes - Subjective Interval history: Patient remains nonverbal as his baseline. Patient currently appears relaxed. Nursing states no further seizure-like activity noted. Patient does have a decorticate type posturing as a baseline response to stimuli. - Constitutional Vitals: Temp Pulse Resp BP Pulse Ox 97.9 F 80 20 118/69 93 09/05/18 04:00 09/05/18 04:00 09/05/18 04:00 09/05/18 04:00 09/05/18 04:00 Exam: Patient remains nonverbal and does not interact during exam. Exam is limited - Head Head exam: Present: atraumatic, normocephalic - Eye Eye exam: Present: PERRL, conjuntiva pink, sclera anicteric Pupils: Present: PERRL - Neck Neck exam general surgery: Present: supple, trachea midline. Absent: lymphadenopathy - Respiratory Respiratory exam: Present: CTAB. Absent: accessory muscle use, rales, rhonchi, wheezes Additional comments: Patient continues to have slight expiratory wheeze heard to upper moreno and diminished basilar moreno. Patient continues to have moderate amount of oral secretions requiring suctioning. Patient continues to be maintained on a 35% oxygen mask with saturations greater than 92%. Productive cough noted but no sputum received. Respiratory effort appears relaxed - Cardiovascular Cardiovascular exam: Present: RRR, +S1, +S2. Absent: diastolic murmur, gallop, rubs, systolic murmur - GI/Abdominal GI/Abdominal exam: Present: distended, normal bowel sounds, soft, no peritoneal signs. Absent: tenderness Additional comments: Abdomen appears slightly distended. Nurse reports that they have had to release moderate amount of flatus from lower left quadrant colostomy site. Bowel sounds are positive throughout - Extremities Exam Extremities exam: Present: warm, radial pulses palpable and symmetrical. Absent: calf tenderness, cyanotic, pedal edema Additional comments: Slight nonpitting generalized edema. Slight contractures to bilateral lower extremities - Neurological Exam Neurological exam: Present: speech deficit. Absent: pronater drift, facial droo p Additional comments: Patient is nonverbal as a baseline. Patient does not interact during exam. Patient does have sluggish withdrawal to extremities with a decorticated posturing. - Skin Skin exam: Present: dry, intact Internal Medicine: Result - Labs CBC & Chem 7: 09/04/18 10:44 09/04/18 10:44 Labs: Short CBC 09/04/18 Range/Units 10:44 WBC 6.1 (4.3-11.1) K/mcL Hgb 12.7 L (12.9-16.9) g/dL Hct 38.9 (37.5-50.1) % Plt Count 155 (140-400) K/mcL Neutrophils # 4.2 (1.6-8.9) K/mcL BMP 09/04/18 10:44 Sodium 140 Potassium 3.1 L Chloride 105 Carbon Dioxide 27 BUN 4 L Creatinine 0.49 L Glucose 122 H Calcium 8.7 Liver Function 09/04/18 Range/Units 10:44 Total Bilirubin 0.3 (0.3-1.0) mg/dL AST 33 (13-39) Units/L ALT 33 (7-52) Units/L Alkaline Phosphatase 99 (34-104) Units/L Albumin 3.3 L (3.5-5.7) g/dL Consult Discharge Plan - Plan Referrals: Queenie Woodward MD [Primary Care Provider] -
[2018-09-05] MEDS ORDERED: Metoclopramide 10 MG/10 ML UD.LIQ GTUBE SCH (12:00)
--- NOTE | 2018-09-05 13:12 | Discharge Summary ---
Addendum entered and electronically signed by Janie Murphy 09/07/18 15:19: I have personally performed a face to face evaluation on this patient. I have reviewed and agree with the care plan. Original Note: Orders not resulted at time of discharge: Pending orders 09/01/18 19:45 Culture,Blood [BC] Stat Date of Encounter: 09/05/18 Time of Encounter: 13:12 - Discharge Diagnosis (1) Dyspnea Priority: Primary Status: Acute Comments: Patient presented to our emergency department due to respiratory distress and the possibility of a aspiration. Patient has a history of severe CP and has been treated for aspiration pneumonia before in the past. Initial chest x-ray which showed a possible obesity to right lung. Patient was treated with nebulized treatments and placed on IV antibiotics. Patient was placed on CPAP to maintain adequate airway. After approximately 48 hours patient was weaned off CPAP appeared more alert and respiratory effort was relaxed. Patient continues to have slight wheeze to upper moreno. Has remained afebrile since admission. Patient was weaned on his oxygen to a nasal cannula and is maintain ing saturations greater than 90%. [facility] we will recommend follow-up with his PCP. Qualifiers: Dyspnea type: unspecified Qualified Code(s): R06.00 - Dyspnea, unspecified (2) Cerebral palsy Priority: Secondary Status: Chronic Comments: No acute issues during his stay of facility. Nursing did report possible seizure activity approximately 2 days ago but it has been noted patient responds to stimulus with a decorticate type posturing. No other seizure activity has been noted. We will continue with current medications and plan of care with patient to follow-up with PCP. She remains on Keppra Qualifiers: Cerebral palsy type: unspecified type Qualified Code(s): G80.9 - Cerebral palsy, unspecified (3) Seizure disorder Priority: Secondary Status: Chronic Comments: Patient was reportedly having short seizures approximately 2 days prior but this is been questionable due to patient's serum for type posturing with any stimulus. No other seizure activity is noted. 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 Patient's Reglan was increased to 10 mg. Patient tolerating tube feeding well. We will continue with current plan of care at [facility]. (5) Hypokalemia Priority: Secondary Status: Acute Comments: Patient's potassium today was 3.1. Patient given 40 mEq via gastrostomy tube this morning and will start on 20 mEq twice a day. Patient's magnesium was 1.5 and patient was given 2 g of magnesium IV. Patient recommended to have lab work done in one week. Hospital course: Mr. Villafana is a 38 year old male , who presented to emergency department with complaints of respiratory distress and possible aspiration. Patient continued to have slight work of breath and was placed on CPAP to maintain airway clearance. Patient's oxygen saturation normalized and patient's work of breath improved. Approximate 48 hours later patient was weaned off the CPAP and today we were able to continue weaning his oxygen to just 2 L nasal cannula. Patient's respiratory status appears relaxed, although patient continues to have a slight expiratory wheeze her to moreno. Patient has a long history of CP and has remained nonverbal. Patient does interact to physical stimulus from staff but otherwise does not track with eyes or follow any commands. Patient was restarted on tube feedings as tolerated well. Patient's labs showed a potassium of 3.1 and a magnesium 1.5 today and patient was giving supplemental repl acement. Is recommended the patient to have labs done in one week to reevaluate his electrolytes. Patient recommended to follow-up with PCP in one week. Discharge discussed with: nurse Time spent discussing smoking cessation with patient: 3 to 10 minutes - Time Spent with Patient Total time spent providing and/or coordinating discharge services: Time spent: Less than 30 minutes - Discharge Medications Prescriptions: No Action Multivit-Min/FA/Lycopen/Lutein [A Thru Z Select Multivit Tab] 1 tab GTUBE DAILY Simethicone 80 mg GTUBE TID Gabapentin [Neurontin] 800 mg GTUBE TID Polyethylene Glycol 3350 [MiraLAX] 17 gm GTUBE DAILY GuaiFENesin/Dextromethorphan [Robitussin/Dm] 5 ml GTUBE Q4HR PRN PRN Reason: Cough Acetaminophen [Children's Pain-Fever] 640 mg GTUBE Q4HR PRN PRN Reason: Pain Hydrocortisone 1% CREAM [Cortaid] 1 appl TP DAILY PRN PRN Reason: GTUBE Omeprazole [PriLOSEC] 20 mg GTUBE DAILY Metoclopramide [Reglan] 5 mg GTUBE Q6HR Amoxicillin/Clavulanate [Augmentin] 875 mg PO BIDWM GuaiFENesin ER [Mucinex] 400 mg PO TID Ipratropium/Albuterol Neb [Duoneb] 3 ml IH Q6HR levETIRAcetam [Keppra Oral Soln] 1,000 mg GTUBE BID Oseltamivir [Tamiflu] 75 mg PO BID Home Medications: Gabapentin [Neurontin] 800 mg GTUBE TID 03/27/17 [History] Multivit-Min/FA/Lycopen/Lutein [A Thru Z Select Multivit Tab] 1 tab GTUBE DAILY 03/27/17 [History] Polyethylene Glycol 3350 [MiraLAX] 17 gm GTUBE DAILY 03/27/17 [History] Simethicone 80 mg GTUBE TID 03/27/17 [History] Acetaminophen [Children's Pain-Fever] 640 mg GTUBE Q4HR PRN 09/14/17 [History] GuaiFENesin/Dextromethorphan [Robitussin/Dm] 5 ml GTUBE Q4HR PRN 09/14/17 [History] Hydrocortisone 1% CREAM [Cortaid] 1 appl TP DAILY PRN 09/14/17 [History] Metoclopramide [Reglan] 5 mg GTUBE Q6HR 09/14/17 [History] Omeprazole [PriLOSEC] 20 mg GTUBE DAILY 09/14/17 [History] Amoxicillin/Clavulanate [Augmentin] 875 mg PO BIDWM 09/01/18 [History] GuaiFENesin ER [Mucinex] 400 mg PO TID 09/01/18 [History] Ipratropium/Albuterol Neb [Duoneb] 3 ml IH Q6HR 09/01/18 [History] Oseltamivir [Tamiflu] 75 mg PO BID 09/01/18 [History] levETIRAcetam [Keppra Oral Soln] 1,000 mg GTUBE BID 09/01/18 [History] Allergies/Adverse Reactions: Allergy/AdvReac Type Severity Reaction Status Date / Time levofloxacin [From Levaquin] Allergy See Verified 10/04/17 06:40 Comments meperidine [From Demerol] Allergy See Verified 10/04/17 06:40 Comments ondansetron Allergy See Verified 10/04/17 06:40 [From Zofran (as Comments hydrochloride)] Date of admission: 09/02/18 15:49 Primary care physician: Queenie Woodward Consults: 09/02/18 08:38 consult to mental health assistant [Consult to Nutrition] [CONS] Routine Comment: at custodial, 2cal 65 ml/hr from 5p-5a Consulting Provider: NUTRITION Reason for Dietary Consult: Tube Feed Start & Manage Discharging clinician: Janie Murphy - Constitutional Vitals: Temp Pulse Resp BP Pulse Ox 97.9 F 80 19 118/69 97 09/05/18 04:00 09/05/18 04:00 09/05/18 10:28 09/05/18 04:00 09/05/18 10:28 Exam: Patient is nonverbal and does not interact with staff except for response to physical stimulus. Exam was limited - Head Head exam: Present: atraumatic, normocephalic - Eye Eye exam: Present: PERRL, conjuntiva pink, sclera anicteric Pupils: Present: PERRL - Neck Neck exam general surgery: Present: supple, trachea midline. Absent: lymphadenopathy - Respiratory Respiratory exam: Present: decreased breath sounds, CTAB, wheezes. Absent: accessory muscle use, rales, rhonchi Additional comments: Lungs have slight expiratory wheeze her to upper moreno and diminished bases but otherwise clear. Patient has a productive cough but no sputum has been receiving. Patient produces a large amount of salivary drainage. Patient's res piratory effort appears relaxed. Patient currently on 2 L of nasal cannula with saturation of 97% - Cardiovascular Cardiovascular exam: Present: RRR, +S1, +S2. Absent: diastolic murmur, gallop, rubs, systolic murmur - GI/Abdominal GI/Abdominal exam: Present: normal bowel sounds, soft, no peritoneal signs. Absent: distended, tenderness - Extremities Exam Extremities exam: Present: warm, radial pulses palpable and symmetrical. Absent: calf tenderness, cyanotic, pedal edema Additional comments: Patient was slight nonpitting edema and noted slight contractures to bilateral lower extremities, likely secondary to immobility - Neurological Exam Neurological exam: Present: speech deficit. Absent: pronater drift, facial droop Additional comments: Patient remains nonverbal as a baseline. Patient does not respond to any stimulus except for physical stimulus such as turning, during which patient will at times make cooing sounds. Patient was sluggish withdrawal to extremities which results in a decorticate type posturing. No seizure activity noted. - Skin Skin exam: Present: dry, intact - Patient Status Disposition: Transfer SNF Condition: Good Functional capacity at discharge: bed bound Overall status at discharge: patient is progressing back to baseline - Discharge Instructions Follow Up With: Queenie Woodward MD [Primary Care Provider] - Forms: ED Satisfaction Letter - Diet and Activity Activity: as per physical therapy, resume usual activities as tolerated Diet: other (tube feeding)
[2018-09-05] MEDS ORDERED: Scopolamine Patch 1.5 MG PATCH.TD72 TD SCH (13:15)
--- NOTE | 2018-09-05 13:31 | Physician Discharge Referral ---
Addendum entered and electronically signed by Janie Murphy 09/07/18 15:19: I have personally performed a face to face evaluation on this patient. I have reviewed and agree with the care plan. 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 (5) Hypokalemia Priority: Secondary Status: Acute Prognosis: Fair Aware of Diagnosis: Family Aware of Prognosis: Family - Transfer Medications Home Medications: Gabapentin [Neurontin] 800 mg GTUBE TID 03/27/17 [History] Multivit-Min/FA/Lycopen/Lutein [A Thru Z Select Multivit Tab] 1 tab GTUBE DAILY 03/27/17 [History] Polyethylene Glycol 3350 [MiraLAX] 17 gm GTUBE DAILY 03/27/17 [History] Simethicone 80 mg GTUBE TID 03/27/17 [History] Acetaminophen [Children's Pain-Fever] 640 mg GTUBE Q4HR PRN 09/14/17 [History] GuaiFENesin/Dextromethorphan [Robitussin/Dm] 5 ml GTUBE Q4HR PRN 09/14/17 [History] Hydrocortisone 1% CREAM [Cortaid] 1 appl TP DAILY PRN 09/14/17 [History] Metoclopramide [Reglan] 5 mg GTUBE Q6HR 09/14/17 [History] Omeprazole [PriLOSEC] 20 mg GTUBE DAILY 09/14/17 [History] Amoxicillin/Clavulanate [Augmentin] 875 mg PO BIDWM 09/01/18 [History] GuaiFENesin ER [Mucinex] 400 mg PO TID 09/01/18 [History] Ipratropium/Albuterol Neb [Duoneb] 3 ml IH Q6HR 09/01/18 [History] Oseltamivir [Tamiflu] 75 mg PO BID 09/01/18 [History] levETIRAcetam [Keppra Oral Soln] 1,000 mg GTUBE BID 09/01/18 [History] Allergies/Adverse Reactions: Allergy/AdvReac Type Severity Reaction Status Date / Time levofloxacin [From Levaquin] Allergy See Verified 10/04/17 06:40 Comments meperidine [From Demerol] Allergy See Verified 10/04/17 06:40 Comments ondansetron Allergy See Verified 10/04/17 06:40 [From Zofran (as Comments hydrochloride)] - Respiratory Orders Oxygen / L per min (2L NC. Titrate to maintain Ox sat >90% DuoNeb Tx q6 hrs scheduled oral or NT suctioning prn) Smoking Cessation: Smoking cessation has been advised. For more information, call the [email or web address] Quit Line at 6-685-DIFH-NOW. - Lab Orders Lab Orders: CBC, U/A, Melvin 17, CXR yearly - Ancillary Orders May use pressure relief devices daily prn, May go on ALFREDO w/family/respon alliance party w/meds at nurse discretion PRN, May consult with Dentist, Motor Pool Clerk, Personalization Specialist PRN - Advance Directives Living Will: No Power of Custom Frame Assembler for Health Care: Yes (Patient's mother is POA) Code Status: DNR-Arrest - Mobility Orders Bedrest - Rehabiliation Orders Rehab Potential: Poor Rehab Orders: ROM Exercises - Treatments Skin tear care topically daily PRN per policy, May check for fecal impaction rectally daily PRN, Fleet enema rectally every other day PRN cleansing purposes - Diet Orders Tube Feedings (type/amount/rate): Patient is to continue on Osmolyte 1.2 or any compatable house formula at 55 cc/hr via GT. Flush Tube (type/amount/frequency): 100cc free water q4hrs and flush prn and with meds. CERTIFICATION: I certify that the transfer of the above named patient to an Extended Care Facility is necessary for the continuing treatment of the diagnosis listed. The above information is true and accurate reflection of patient's current condition. Confidential - Redisclosure prohibited without a patient's written consent.
[2018-09-05] MEDS: levETIRAcetam 500 MG/5 ML UDC GTUBE SCH (14:30)
[2018-09-05] MEDS: Multivitamin Liquid 15 ML UDC GTUBE SCH (14:30)
[2018-09-05 15:04] VITALS: BP 120/78
[2018-09-05] MEDS ORDERED: Potassium Chloride Elixir 20 MEQ/15 ML UDC GTUBE SCH (21:00)
== END 2018-09-05 17:57 | DRG 204 ==
LOC: INPGRE 19:10 → EMEROOGRE 19:10 → INPGRE 22:55